=== PATIENT | female | born 1960 | race Caucasian/White ===

== ENCOUNTER → 2019-08-21 | Day surgery (SDC) | payer OTHER ==
[~2019-08-21] MED LIST: ALBUTEROL SULFATE 2.5 MG/3 ML NEBU. NEB PRN; AMIT50TA PO; CYCL-331 PO; FLUO40CA9 PO; IV RINGERS SOLUTION,LACTATED 1,000 ML IV SCH; LEVO75TA5 PO; PROPOFOL 20 ML IV ONE; TRAM50TA PO
[2019-08-21 14:37] VITALS: BP 118/78
== END | disposition home or self-care (01) ==
LOC: SURG 13:03
PROVIDERS: ATTEND Emergency Medicine
DX: Z12.11 Encounter for screening for malignant neoplasm of colon (principal); K64.8 Other hemorrhoids; E03.9 Hypothyroidism, unspecified; F32.9 Major depressive disorder, single episode, unspecified; E66.9 Obesity, unspecified; Z68.32 Body mass index [BMI] 32.0-32.9, adult; Z98.890 Other specified postprocedural states; Z79.899 Other long term (current) drug therapy; Z72.89 Other problems related to lifestyle
CPT/HCPCS: G0121; J2704; J7120; 45378